=== PATIENT | male | born 1975 | race Caucasian/White ===

== ENCOUNTER 2016-10-07 13:17 | Inpatient (IN) | payer BC ==
[~2016-10-07] VITALS: Ht 170.2 cm; Wt 83.5 kg
--- NOTE | 2016-10-07 14:16 | Emergency Room Report ---
History of Present Illness General Chief Complaint: Skin Rash/Abscess Source: Patient Present Illness HPI 41-year-old male presents emergency department complaining of pain, swelling, erythema to the gluteal cleft x4 days. Patient states he has a past history of pilonidal cyst. Patient states that he was evaluated by Dr. mallory hilario this morning and was sent to the ER for admission as he will be receiving surgical removal of pilonidal cyst tomorrow morning. Patient denies nausea, vomiting, fevers, chills, discharge. Patient denies taking antibiotic medications at this time. Patient states he took Tylenol prior to arrival and his pain is now a 3/10 in severity however previously his pain was 10 out of 10 in severity. Denies CP, Palpitations, LOC, AMS, dizziness, Changes in Vision, Sensation, paresthesias, or a sudden severe headache. Allergies: Coded Allergies: No Known Allergies (Unverified , 10/07/16) Patient History Past Medical History: see triage record Past Surgical History: none Pertinent Family History: none Immunizations: UTD Reviewed Nursing Documentation: PMH: Agreed, PSxH: Agreed Nursing Documentation-PMH Past Medical History: No History, Except For Review of Systems All Other Systems: negative except mentioned in HPI Physical Exam Vital Signs Date Time Temp Pulse Resp B/P Pulse Ox O2 Delivery O2 Flow Rate FiO2 10/07/16 13:29 98.1 61 16 101/63 98 Room Air Sp02 EP Interpretation: reviewed, normal General Appearance: no apparent distress, alert, GCS 15, non-toxic Head: normocephalic, atraumatic Eyes: bilateral eye PERRL, bilateral eye normal inspection ENT: hearing grossly normal, normal pharynx, no angioedema, normal voice Neck: full range of motion, supple/symm/no masses Respiratory: lungs clear, normal breath sounds, speaking full sentences Cardiovascular #1: regular rate, rhythm, no edema Cardiovascular #2: 0 carotid (R), 0 carotid (L), 0 radial (R), 0 radial (L), 0 femoral (R), 0 femoral (L), 0 dorsalis pedis (R), 0 dorsalis pedis (L) Rectal: deferred, tenderness - mild erythema and TTp to the gluteal cleft, no fluctuance palpated. mild induration. Genitourinary: normal inspection, no CVA tenderness Musculoskeletal: back normal, gait/station normal, normal range of motion, non- tender, no calf tenderness Neurologic: alert, oriented x3, responsive, motor strength/tone normal, sensory intact, speech normal Psychiatric: judgement/insight normal, memory normal, mood/affect normal Skin: normal color, no rash, warm/dry, well hydrated, other - mild erythema and TTp to the gluteal cleft, no fluctuance palpated. mild induration. Lymphatic: no adenopathy Medical Decision Making PA Attestation Dr. Elias is my supervising Physician whom patient management has been discussed with. Diagnostic Impression: Primary Impression: Pilonidal cyst ER Course Pt. presents to the ED c/o pain, swelling, and erythema of the gluteal cleft x 4 days. - pt sent to ED by for Surgical removal scheduled for tomorrow am. Ddx considered but are not limited to cellulitis, hydradenitis Suppurativa, Pilonidal Cyst, Vital signs: are WNL, pt. is afebrile H&PE are most consistent with Pilonidal Cyst requiring direct admission for surgical or IV abx management. ORDERS: -Gen. preop lab work: CBC, CMP, PT/PTT,-- which were unremarkable -Type and Screen: ordered for Pro-op - EK BPM NSR, no acute ST changes -interpreted by Dr. Elias -CXR: No consolidation, effusion, pneumothorax or acute cardiopulmonary findings per official radiology report by Dr. Sadler -Blood Cultures x 2 : Pending ED INTERVENTIONS: -1.5Grams Unasyn IV -5mg [place] PO -30mg Toradol IV DISPOSITION: at this time pt. will be admitted to Dr. Veloz for Pilonidal Cyst Removal. Dr. Veloz agreed to admit the pt. and to continue pt. care management. Labs Test 10/07/16 14:30 White Blood Count 8.1 K/UL (4.8-10.8) Red Blood Count 4.61 M/UL (4.70-6.10) Hemoglobin 15.0 G/DL (14.2-18.0) Hematocrit 45.4 % (42.0-52.0) Mean Corpuscular Volume 98 FL (80-99) Mean Corpuscular Hemoglobin 32.5 PG (27.0-31.0) Mean Corpuscular Hemoglobin Concent 33.1 G/DL (32.0-36.0) Red Cell Distribution Width 11.1 % (11.6-14.8) Platelet Count 206 K/UL (150-450) Mean Platelet Volume 6.6 FL (6.5-10.1) Neutrophils (%) (Auto) 63.7 % (45.0-75.0) Lymphocytes (%) (Auto) 22.7 % (20.0-45.0) Monocytes (%) (Auto) 6.1 % (1.0-10.0) Eosinophils (%) (Auto) 6.6 % (0.0-3.0) Basophils (%) (Auto) 0.9 % (0.0-2.0) Prothrombin Time 10.7 SEC (9.30-11.50) Prothromb Time International Ratio 1.1 (0.9-1.1) Activated Partial Thromboplast Time 27 SEC (23-33) Sodium Level 140 mEQ/L (135-145) Potassium Level 3.8 mEQ/L (3.4-4.9) Chloride Level 98 mEQ/L (98-107) Carbon Dioxide Level 29 mEQ/L (20-30) Anion Gap 13 (5-15) Blood Urea Nitrogen 9 mg/dL (7-23) Creatinine 0.8 mg/dL (0.7-1.2) Estimat Glomerular Filtration Rate > 60 mL/min (>60) Glucose Level 88 mg/dL (74-106) Calcium Level 8.9 mg/dL (8.6-10.2) Total Bilirubin 0.3 mg/dL (0.0-1.2) Aspartate Amino Transf (AST/SGOT) 19 U/L (5-40) Alanine Aminotransferase (ALT/SGPT) 14 U/L (3-41) Alkaline Phosphatase 64 U/L (40-129) Total Protein 6.5 g/dL (6.6-8.7) Albumin 4.0 g/dL (3.5-5.2) Globulin 2.5 g/dL Albumin/Globulin Ratio 1.6 (1.0-2.7) EKG Diagnostic Results EP Interpretation: -interpreted by Dr. Elias Rate: normal - 62 BPM Rhythm: NSR ST Segments: no acute changes ASA given to the pt in ED: No PA Scribe Text 62 BPM NSR, no acute ST changes -interpreted by Dr. Elias Chest X-Ray Diagnostic Results EP Interpretation: No - read by Radiologist Findings: no effusion, no pneumothorax, no acute cardiopulmonary disease Number of Views: 1 PA Scribe Text CXR was officially read by Radiologist. Last Vital Signs Date Time Temp Pulse Resp B/P Pulse Ox O2 Delivery O2 Flow Rate FiO2 10/07/16 13:29 98.1 61 16 101/63 98 Room Air Disposition: ADMITTED INPATIENT Condition: Serious Mahi Lira Oct 07, 2016 14:16
[2016-10-07] MEDS ORDERED: Unasyn 1.5gm Vial ONE (14:44)
[2016-10-07] MEDS ORDERED: Ampicillin/Sulbactam Sod 1.5 GM in NS 55 ML IVPB SCH (14:45)
[2016-10-07 14:55] LABS: BASOPHILS % (AUTO) 0.9 % (0.0-2.0); EOSINOPHILS % (AUTO) 6.6 % (0.0-3.0); LYMPHOCYTES % (AUTO) 22.7 % (20.0-45.0); MEAN CORPUSCULAR HEMOGLOBIN 32.5 PG (27.0-31.0); MEAN CORPUSCULAR HGB CONC 33.1 G/DL (32.0-36.0); MEAN CORPUSCULAR VOLUME 98 FL (80-99); MEAN PLATELET VOLUME 6.6 FL (6.5-10.1); MONOCYTES % (AUTO) 6.1 % (1.0-10.0); NEUTROPHILS % (AUTO) 63.7 % (45.0-75.0); PLATELET COUNT 206 K/UL (150-450); RED BLOOD COUNT 4.61 M/UL (4.70-6.10); RED CELL DISTRIBUTION WIDTH 11.1 % (11.6-14.8); WHITE BLOOD COUNT 8.1 K/UL (4.8-10.8)
[2016-10-07 15:10] LABS: ALANINE AMINOTRANSFERASE 14 U/L (3-41); ALBUMIN/GLOBULIN RATIO 1.6 (1.0-2.7); ANION GAP 13 (5-15); ASPARTATE AMINO TRANSFERASE 19 U/L (5-40); CALCIUM 8.9 mg/dL (8.6-10.2); CARBON DIOXIDE 29 mEQ/L (20-30); CHLORIDE 98 mEQ/L (98-107); CREATININE 0.8 mg/dL (0.7-1.2); GLOMERULAR FILTRATION RATE > 60 mL/min (>60); HEMOLYSIS 10; POTASSIUM 3.8 mEQ/L (3.4-4.9); SODIUM 140 mEQ/L (135-145); TOTAL PROTEIN 6.5 g/dL (6.6-8.7)
[2016-10-07 15:14] LABS: INR 1.1 (0.9-1.1); PROTHROMBIN TIME 10.7 SEC (9.30-11.50)
[2016-10-07 15:22] VITALS: BP 121/72
[2016-10-07] MEDS ORDERED: Norco 5mg/325mg tab ORAL ONE (15:30)
[2016-10-07] MEDS ORDERED: Ketorolac 30mg Inj IV ONE (15:30)
[2016-10-07] MEDS ORDERED: DESCOVY 200-251 EACH PO (15:46)
[2016-10-07 16:00] VITALS: BP 116/49
--- NOTE | 2016-10-07 16:04 | Diagnostic Imaging Report ---
Indication: Cough Technique: Single portable AP view of the chest. Findings: Comparison: None. The bones and extra pulmonary soft tissues, cardiomediastinal silhouette, pulmonary vasculature and parenchyma, and pleural surfaces are unremarkable. IMPRESSION: Negative portable AP chest.
[2016-10-07] MEDS ORDERED: TIVICAY50 MG ORAL (16:16)
[2016-10-07] MEDS ORDERED: LORazepam Inj 2mg/ml 1ml IV PRN (17:30)
[2016-10-07] MEDS ORDERED: Morphine Sulfate 4mg/ml Inj IVP PRN (17:30)
[2016-10-07] MEDS ORDERED: Miralax 17gm pkt ORAL PRN (17:30)
[2016-10-07] MEDS ORDERED: Morphine Sulfate 2mg/ml Inj IVP PRN (17:30)
[2016-10-07] MEDS ORDERED: Milk of Magnesia 30ml Ud ORAL PRN (17:30)
[2016-10-07] MEDS ORDERED: Mylanta II UD 30ml ORAL PRN (17:30)
--- NOTE | 2016-10-07 17:35 | History and Physical ---
History of Present Illness General Date patient seen: Oct 07, 2016 Time patient seen: 17:29 Reason for Hospitalization: Skin Rash/Abscess Present Illness HPI 41 y/o HIV pos man who presents with a painful pilonidal cyst, has had it off and on for the past 2 years. yesterday the pain was uncontrolled, has taken abx for it previously but not on this episode, he saw a plastic surgeon who sent him to the ER to be evaluated and to get IV abx. He has not had surgery before, however recently had an epidural done under [place] without complications. His HIV is well controlled, last CD4 count 500+ and VL undetectable in Jul 2016. No fevers/chills. His exercise tolerance is excellent. He is able to exert greater than 4METS activity without any chest pain or dyspnea. No hx of CAD/CHF. Allergies: Coded Allergies: No Known Allergies (Unverified , 10/07/16) Medication History Scheduled Dolutegravir Sodium (Tivicay), 50 MG ORAL DAILY, (Reported) Emtricitabine/Tenofov Alafenam (Descovy 200-25 mg Tablet), 1 EACH PO DAILY, ( Reported) Patient History History Provided By: Patient Healthcare decision maker Resuscitation status Advanced Directive on File Past Medical/Surgical History Past Medical/Surgical History: (1) Pilonidal cyst Family History Family History: In first degree relatives is unremarkable Social History Social History: (1) No significant social history Review of Systems ROS Narrative CONSTITUTIONAL: No weight loss, fever, chills, weakness or fatigue. HEENT: Eyes: No visual loss, blurred vision, double vision or yellow sclerae. Ears, Nose, Throat: No hearing loss, sneezing, congestion, runny nose or sore throat. SKIN: No rash or itching. CARDIOVASCULAR: No chest pain, chest pressure or chest discomfort. No palpitations or edema. RESPIRATORY: No shortness of breath, cough or sputum. GASTROINTESTINAL: No anorexia, nausea, vomiting or diarrhea. No abdominal pain or blood. NEUROLOGICAL: No headache, dizziness, syncope, paralysis, ataxia, numbness or tingling in the extremities. No change in bowel or bladder control. MUSCULOSKELETAL: No muscle, +lower back and sacral pain, no joint pain or stiffness. HEMATOLOGIC: No anemia, bleeding or bruising. LYMPHATICS: No enlarged nodes. No history of splenectomy. PSYCHIATRIC: No history of depression or anxiety. ENDOCRINOLOGIC: No reports of sweating, cold or heat intolerance. No polyuria or polydipsia. ALLERGIES: No history of asthma, hives, eczema or rhinitis. Physical Exam Physical Exam Narrative General: alert, cooperative, no distress, appears stated age Head: normocephalic, without obvious abnormality, atraumatic Eyes: conjunctivae/corneas clear. PERRL, EOM's intact Throat: lips, mucosa, and tongue normal. MMM Neck: supple, symmetrical, trachea midline, and no JVD Lungs: clear to auscultation bilaterally Heart: regular rate and rhythm, S1, S2 normal, no murmur, click, rub or gallop Abdomen: soft, non-tender, non-distended, bowel sounds normal; no masses or organomegaly Extremities: area of induration/erythema/rubor/tenderness just above gluteal crevice Pulses: 2+ and symmetric Skin: skin color, texture, turgor normal; no rashes or lesions Neurologic: grossly normal, no focal deficits Last 24 Hour Vital Signs Date Time Temp Pulse Resp B/P Pulse Ox O2 Delivery O2 Flow Rate FiO2 10/07/16 16:31 66 14 121/72 97 Room Air 10/07/16 16:04 98.1 10/07/16 16:04 98.1 10/07/16 16:00 98.1 65 20 116/49 97 Room Air 10/07/16 15:22 97.9 66 14 121/72 97 Room Air 10/07/16 13:29 98.1 61 16 101/63 98 Room Air Laboratory Tests Test 10/07/16 14:30 White Blood Count 8.1 K/UL (4.8-10.8) Red Blood Count 4.61 M/UL (4.70-6.10) L Hemoglobin 15.0 G/DL (14.2-18.0) Hematocrit 45.4 % (42.0-52.0) Mean Corpuscular Volume 98 FL (80-99) Mean Corpuscular Hemoglobin 32.5 PG (27.0-31.0) H Mean Corpuscular Hemoglobin Concent 33.1 G/DL (32.0-36.0) Red Cell Distribution Width 11.1 % (11.6-14.8) L Platelet Count 206 K/UL (150-450) Mean Platelet Volume 6.6 FL (6.5-10.1) Neutrophils (%) (Auto) 63.7 % (45.0-75.0) Lymphocytes (%) (Auto) 22.7 % (20.0-45.0) Monocytes (%) (Auto) 6.1 % (1.0-10.0) Eosinophils (%) (Auto) 6.6 % (0.0-3.0) H Basophils (%) (Auto) 0.9 % (0.0-2.0) Prothrombin Time 10.7 SEC (9.30-11.50) Prothromb Time International Ratio 1.1 (0.9-1.1) Activated Partial Thromboplast Time 27 SEC (23-33) Sodium Level 140 mEQ/L (135-145) Potassium Level 3.8 mEQ/L (3.4-4.9) Chloride Level 98 mEQ/L (98-107) Carbon Dioxide Level 29 mEQ/L (20-30) Anion Gap 13 (5-15) Blood Urea Nitrogen 9 mg/dL (7-23) Creatinine 0.8 mg/dL (0.7-1.2) Estimat Glomerular Filtration Rate > 60 mL/min (>60) Glucose Level 88 mg/dL (74-106) Calcium Level 8.9 mg/dL (8.6-10.2) Total Bilirubin 0.3 mg/dL (0.0-1.2) Aspartate Amino Transf (AST/SGOT) 19 U/L (5-40) Alanine Aminotransferase (ALT/SGPT) 14 U/L (3-41) Alkaline Phosphatase 64 U/L (40-129) Total Protein 6.5 g/dL (6.6-8.7) L Albumin 4.0 g/dL (3.5-5.2) Globulin 2.5 g/dL Albumin/Globulin Ratio 1.6 (1.0-2.7) Height (Feet): 5 Height (Inches): 7.00 Weight (Pounds): 184 Medications Current Medications Medications (Trade) Dose Ordered Sig/Jolie Route PRN Reason Start Time Stop Time Status Last Admin Dose Admin Ampicillin Sodium/ Sulbactam Sodium/ Sodium Chloride (Unasyn/Sodium Chloride) 55 ml @ 110 mls/hr Q24HRS IVPB 3/28/17 14:45 10/14/16 14:44 10/07/16 14:56 Assessment/Plan Problem List: (1) Pilonidal cyst with abscess Assessment & Plan: Admit to inpatient Check blood cultures Start IV abx Wound care Pain control Plastic surgery consult to eval for I+D If patient is required to have surgery, based on the patient's medical history, and other available ancillary data, the patient is a LOW risk for an INTERMEDIATE risk procedure. Per the most recent ACC/AHA guidelines, the patient does not need any further cardiopulmonary testing prior to the procedure and there do not appear to be any clear medical contraindications to proceeding with the proposed procedure. ICD Codes: L05.01 - Pilonidal cyst with abscess SNOMED: [id number] HARVEY ESPINOSA Oct 07, 2016 17:35
[2016-10-07 19:00] VITALS: BP 107/52
[2016-10-07] MEDS: D5NS 1,000 ML IV SCH (19:01)
[2016-10-07] MEDS: Docusate 100mg tablet ORAL SCH (20:37)
[2016-10-07] MEDS: ceFAZolin sod 1 GM in D5W 55 ML IVPB SCH (21:20)
[2016-10-07] MEDS ORDERED: Dolutegravir Sodium 50mg tab ORAL ONE (22:00)
[2016-10-07] MEDS: DESCOVY ORAL SCH (22:07)
[2016-10-08] VITALS (16 sets, daily range): BP systolic 92–137; BP diastolic 38–85
[2016-10-08] MEDS: ceFAZolin sod 1 GM in D5W 55 ML IVPB SCH (05:44)
[2016-10-08] MEDS: D5NS 1,000 ML IV SCH ×2 (05:44→18:48)
[2016-10-08 07:15] LABS: ANION GAP 11 (5-15); CALCIUM 8.5 mg/dL (8.6-10.2); CARBON DIOXIDE 27 mEQ/L (20-30); CHLORIDE 105 mEQ/L (98-107); CREATININE 0.8 mg/dL (0.7-1.2); GLOMERULAR FILTRATION RATE > 60 mL/min (>60); HEMOLYSIS 5; POTASSIUM 3.9 mEQ/L (3.4-4.9); SODIUM 143 mEQ/L (135-145)
[2016-10-08] MEDS: Docusate 100mg tablet ORAL SCH ×2 (08:21→22:21)
[2016-10-08] MEDS ORDERED: Dolutegravir Sodium 50mg tab ORAL SCH (09:00)
[2016-10-08] MEDS ORDERED: Bacitracin 50000 Units Vial ONE (09:51)
[2016-10-08] MEDS ORDERED: Lidocaine 1% 10mg/ml/Epi 0.005mg/ml 30ml vial INJ ONE (09:51)
[2016-10-08] MEDS ORDERED: EPINEPHrine 1mg/1ml Amp ONE (09:51)
[2016-10-08] MEDS ORDERED: Propofol 10mg/ml 20ml IV ONE (09:56)
[2016-10-08] MEDS ORDERED: Zemuron 50mg/5ml Inj IV ONE (10:00)
[2016-10-08] MEDS ORDERED: Ketorolac 30mg Inj ONE (10:00)
[2016-10-08] MEDS ORDERED: LR 1000ml ONE (10:00)
[2016-10-08] MEDS ORDERED: Sterile Water Irrig 1000ml IRRIG ONE (10:00)
[2016-10-08] MEDS ORDERED: NS Irrig 1000ml ONE (10:00)
[2016-10-08] MEDS ORDERED: Neostigmine 1mg/ml 10ml Inj ONE (10:00)
[2016-10-08] MEDS ORDERED: Succinylcholine 20mg/ml 10ml vial ONE (10:00)
[2016-10-08] MEDS ORDERED: Morphine Sulfate 10mg/ml Inj ONE (10:00)
[2016-10-08] MEDS ORDERED: Glycopyrrolate 0.2mg/ml 1ml Vial ONE (10:00)
[2016-10-08] MEDS ORDERED: Midazolam 2mg/2ml Inj ONE (10:00)
--- NOTE | 2016-10-08 10:00 | Pre-Procedure Note/Attestation ---
Pre-Procedure Note/Attestation Complete Prior to Procedure Planned Procedure: not applicable Procedure Narrative: Excision of pilonidal cyst with flap closure Attestation I attest that I discussed the nature of the procedure; its benefits; risks and complications; and alternatives (and the risks and benefits of such alternatives ), prior to the procedure, with the patient (or the patient's legal bilingual sales representative). I attest that, if there was a reasonable possibility of needing a blood transfusion, the patient (or the patient's legal bilingual sales representative) was given the [facility] standardized written summary, pursuant to the Micah Johnnie Blood Safety Act ([place] Health and Safety Code # 1645, as amended). I attest that I re-evaluated the patient just prior to the surgery and that there has been no change in the patient's H&P, except as documented below: PURNIMA MASTERS Oct 08, 2016 10:00
--- NOTE | 2016-10-08 10:01 | Operative Note - PDOC ---
Operative Note Operative Note Pre-op Diagnosis: Pilonidal disease Procedure: Excision of pilonidal disease with flap closure Post-op Diagnosis: same as pre-op Surgeon: Sukhdev Addiction Nurse: Mena Anesthesia: general Specimen: yes Complications: none Condition: stable Estimated Blood Loss: minimal Drains: PURNIMA BELL Oct 08, 2016 10:01
[2016-10-08] MEDS ORDERED: Rate Change PCA 1 Each MISC PRN (10:15)
[2016-10-08] MEDS ORDERED: Zolpidem 5mg tab ORAL PRN (10:15)
[2016-10-08] MEDS ORDERED: Lacri-Lube Opth Oint 3.5gm ONE (10:21)
[2016-10-08] MEDS ORDERED: LR 1000ml 1,000 ML IVLG SCH (11:02)
--- NOTE | 2016-10-08 11:02 | Anethesia Preoperative Eval ---
Anesthesia Pre-op PMH/ROS General Date of Evaluation: Oct 08, 2016 Time of Evaluation: 10:02 Anesthesiologist: Lee Ann ASA Score: ASA 2 Mallampati Score Class I : Soft palate, uvula, fauces, pillars visible Class II: Soft palate, uvula, fauces visible Class III: Soft palate, base of uvula visible Class IV: Only hard plate visible Mallampati Classification: Class II Surgeon: Sukhdev Diagnosis: Infected pilonidal cyst Surgical Procedure: Excision of pilonidal cyst Anesthesia History: none Family History: no anesthesia problems Allergies: Coded Allergies: No Known Allergies (Unverified , 10/07/16) Past Medical History Cardiovascular: Denies: CAD, HTN, [place], arrhythmia, other, valve dz Pulmonary: Denies: COPD, [place], asthma, other Gastrointestinal/Genitourinary: Reports: GERD, Denies: CRI, ESRD, other Neurologic/Psychiatric: Denies: CVA, TIA, dementia, depression/anxiety, other Endocrine: Denies: DM, hypothyroidism, other, steroids HEENT: Denies: [place] (L), [place] (R), cataract (L), cataract (R), glaucoma, other Hematology/Immune: Reports: other - HIV + Stable on antivirals, Denies: DVT, anemia, bleeding disorder Musculoskeletal/Integumentary: Denies: DDD, DJD, OA, RA, edema, other PMH Narrative: as above PSxH Narrative: none Anesthesia Pre-op Phys. Exam Physician Exam Last Vital Signs Date Time Temp Pulse Resp B/P Pulse Ox O2 Delivery O2 Flow Rate FiO2 10/08/16 08:00 96.8 59 18 103/62 98 Room Air Constitutional: NAD Neurologic: CN 2-12 intact Cardiovascular: RRR, no M/R/G Respiratory: CTA Gastrointestinal: S/NT/ND Airway Exam Mallampati Score: Class II MO: full Neck: flexible ROM: full Teeth: intact Dentures: no lower, no upper Anesthesia Pre-op A/P Labs Hematology Test 10/07/16 14:30 White Blood Count 8.1 K/UL (4.8-10.8) Red Blood Count 4.61 M/UL (4.70-6.10) L Hemoglobin 15.0 G/DL (14.2-18.0) Hematocrit 45.4 % (42.0-52.0) Mean Corpuscular Volume 98 FL (80-99) Mean Corpuscular Hemoglobin 32.5 PG (27.0-31.0) H Mean Corpuscular Hemoglobin Concent 33.1 G/DL (32.0-36.0) Red Cell Distribution Width 11.1 % (11.6-14.8) L Platelet Count 206 K/UL (150-450) Mean Platelet Volume 6.6 FL (6.5-10.1) Neutrophils (%) (Auto) 63.7 % (45.0-75.0) Lymphocytes (%) (Auto) 22.7 % (20.0-45.0) Monocytes (%) (Auto) 6.1 % (1.0-10.0) Eosinophils (%) (Auto) 6.6 % (0.0-3.0) H Basophils (%) (Auto) 0.9 % (0.0-2.0) Coagulation Test 10/07/16 14:30 Prothrombin Time 10.7 SEC (9.30-11.50) Prothromb Time International Ratio 1.1 (0.9-1.1) Activated Partial Thromboplast Time 27 SEC (23-33) Chemistry Test 10/07/16 14:30 10/08/16 06:10 Sodium Level 140 mEQ/L (135-145) 143 mEQ/L (135-145) Potassium Level 3.8 mEQ/L (3.4-4.9) 3.9 mEQ/L (3.4-4.9) Chloride Level 98 mEQ/L (98-107) 105 mEQ/L (98-107) Carbon Dioxide Level 29 mEQ/L (20-30) 27 mEQ/L (20-30) Anion Gap 13 (5-15) 11 (5-15) Blood Urea Nitrogen 9 mg/dL (7-23) 10 mg/dL (7-23) Creatinine 0.8 mg/dL (0.7-1.2) 0.8 mg/dL (0.7-1.2) Estimat Glomerular Filtration Rate > 60 mL/min (>60) > 60 mL/min (>60) Glucose Level 88 mg/dL (74-106) 106 mg/dL (74-106) Calcium Level 8.9 mg/dL (8.6-10.2) 8.5 mg/dL (8.6-10.2) L Total Bilirubin 0.3 mg/dL (0.0-1.2) Aspartate Amino Transf (AST/SGOT) 19 U/L (5-40) Alanine Aminotransferase (ALT/SGPT) 14 U/L (3-41) Alkaline Phosphatase 64 U/L (40-129) Total Protein 6.5 g/dL (6.6-8.7) L Albumin 4.0 g/dL (3.5-5.2) Globulin 2.5 g/dL Albumin/Globulin Ratio 1.6 (1.0-2.7) Risk Assessment & Plan Assessment: ASA 2 Plan: GA with ETT prone position Status Change Before Surgery: No Pre-Antibiotics Drug: Ancef 2 gr. Given Within 1 Hr of Incision: Yes Time Given: 10:22 AUGIE MARIE M.D. Oct 08, 2016 11:02
[2016-10-08] MEDS ORDERED: Metoclopramide 10mg/2ml Inj IVP PRN (11:15)
[2016-10-08] MEDS ORDERED: Hydromorphone 0.5mg/0.5ml inj IVP PRN (11:15)
[2016-10-08] MEDS ORDERED: DiphenhydrAMINE 50mg/ml Inj IVP PRN (11:15)
[2016-10-08] MEDS ORDERED: Ketorolac 30mg Inj IV PRN (11:15)
[2016-10-08] MEDS ORDERED: Meperidine 25mg/ml Inj IV PRN (11:15)
[2016-10-08] MEDS: PCA HYDROmorphone 1mg/ml 30 ML IV PRN (13:10)
--- NOTE | 2016-10-08 13:32 | Immediate Post-Op Evaluation ---
Immediate Post-Op Evalulation Immediate Post-Op Evalulation Procedure: Excision of pilonidal cyst Date of Evaluation: Oct 08, 2016 Time of Evaluation: 11:50 IV Fluids: 800 Blood Products: none Estimated Blood Loss: <50 Urinary Output: none Blood Pressure Systolic: 136 Blood Pressure Diastolic: 58 Pulse Rate: 74 Respiratory Rate: 22 O2 Sat by Pulse Oximetry: 99 Temperature (Fahrenheit): 97.6 Pain Score (1-10): 2 Nausea: No Vomiting: No Complications none Patient Status: reacts, patent, extubated, none Hydration Status: adequate AUGIE MARIE M.D. Oct 08, 2016 13:32
[2016-10-08] MEDS ORDERED: TIVICAY 50MG TAB ORAL SCH (14:00)
--- NOTE | 2016-10-08 14:28 | General Progress Note ---
Assessment/Plan Problem List: (1) Pilonidal cyst with abscess Assessment & Plan: s/p I+D pilonidal abscess POD#0 f/u blood cultures Cont IV abx Wound care Pain control Plastic surgery input and wound care appreciated ICD Codes: L05.01 - Pilonidal cyst with abscess SNOMED: [id number] Subjective Date patient seen: Oct 08, 2016 Time patient seen: 14:26 ROS Limited/Unobtainable: No Allergies: Coded Allergies: No Known Allergies (Unverified , 10/07/16) Subjective s/p I+D of pilonidal abscess Objective Last 24 Hour Vital Signs Date Time Temp Pulse Resp B/P Pulse Ox O2 Delivery O2 Flow Rate FiO2 10/08/16 14:02 97.0 73 20 128/71 97 Room Air 10/08/16 13:32 74 22 99 10/08/16 13:19 98.0 10/08/16 13:16 98.0 10/08/16 13:16 98.0 10/08/16 13:10 98.0 62 20 101/49 98 Nasal Cannula 3.0 10/08/16 13:10 20 10/08/16 13:00 63 20 103/50 98 Nasal Cannula 3.0 10/08/16 12:45 64 20 102/49 98 Nasal Cannula 3.0 10/08/16 12:30 59 20 111/51 98 Nasal Cannula 3.0 10/08/16 12:19 64 20 119/69 98 Nasal Cannula 3.0 10/08/16 12:15 68 20 124/74 98 Nasal Cannula 3.0 10/08/16 12:00 77 20 137/82 98 Nasal Cannula 3.0 10/08/16 11:56 78 20 136/79 98 Nasal Cannula 3.0 10/08/16 11:51 84 20 132/76 98 Simple Mask 10.0 10/08/16 11:46 98.0 92 20 131/85 98 Simple Mask 10.0 10/08/16 08:00 96.8 59 18 103/62 98 Room Air 10/08/16 04:00 97.0 56 18 104/59 95 Room Air 10/08/16 00:00 97.3 56 18 104/62 96 Room Air 10/07/16 19:00 97.9 56 20 107/52 96 Room Air 10/07/16 16:31 66 14 121/72 97 Room Air 10/07/16 16:04 98.1 10/07/16 16:04 98.1 10/07/16 16:00 98.1 65 20 116/49 97 Room Air 10/07/16 15:22 97.9 66 14 121/72 97 Room Air Intake and Output 10/07/16 10/08/16 19:00 07:00 Intake Total 55 ml 1692.5 ml Balance 55 ml 1692.5 ml Intake Oral 740 ml IV Total 55 ml 952.5 ml # Voids 1 8 Laboratory Tests 10/07/16 14:30: White Blood Count 8.1, Red Blood Count 4.61L, Hemoglobin 15.0, Hematocrit 45.4, Mean Corpuscular Volume 98, Mean Corpuscular Hemoglobin 32.5H, Mean Corpuscular Hemoglobin Concent 33.1, Red Cell Distribution Width 11.1L, Platelet Count 206, Mean Platelet Volume 6.6, Neutrophils (%) (Auto) 63.7, Lymphocytes (%) (Auto) 22.7, Monocytes (%) (Auto) 6.1, Eosinophils (%) (Auto) 6.6H, Basophils (%) (Auto ) 0.9, Prothrombin Time 10.7, Prothromb Time International Ratio 1.1, Activated Partial Thromboplast Time 27, Sodium Level 140, Potassium Level 3.8, Chloride Level 98, Carbon Dioxide Level 29, Anion Gap 13, Blood Urea Nitrogen 9, Creatinine 0.8, Estimat Glomerular Filtration Rate > 60, Glucose Level 88, Calcium Level 8.9, Total Bilirubin 0.3, Aspartate Amino Transf (AST/SGOT) 19, Alanine Aminotransferase (ALT/SGPT) 14, Alkaline Phosphatase 64, Total Protein 6.5L, Albumin 4.0, Globulin 2.5, Albumin/Globulin Ratio 1.6 10/08/16 06:10: Sodium Level 143, Potassium Level 3.9, Chloride Level 105, Carbon Dioxide Level 27, Anion Gap 11, Blood Urea Nitrogen 10, Creatinine 0.8, Estimat Glomerular Filtration Rate > 60, Glucose Level 106, Calcium Level 8.5L Height (Feet): 5 Height (Inches): 7.00 Weight (Pounds): 184 Objective General: alert, cooperative, no distress, appears stated age Head: normocephalic, without obvious abnormality, atraumatic Eyes: conjunctivae/corneas clear. PERRL, EOM's intact Throat: lips, mucosa, and tongue normal. MMM Neck: supple, symmetrical, trachea midline, and no JVD Lungs: clear to auscultation bilaterally Heart: regular rate and rhythm, S1, S2 normal, no murmur, click, rub or gallop Abdomen: soft, non-tender, non-distended, bowel sounds normal; no masses or organomegaly Extremities: incision c/d/i in area of pilonidal region Pulses: 2+ and symmetric Skin: skin color, texture, turgor normal; no rashes or lesions Neurologic: grossly normal, no focal deficits HARVEY ESPINOSA Oct 08, 2016 14:28
[2016-10-08] MEDS: PCA shift volume MISC SCH ×2 (15:00→23:00)
--- NOTE | 2016-10-08 16:26 | Cardiology Report ---
APPROVED REPORT EKG Measurement Heart [id number] IL [id number] Normal sinus rhythm Normal ECG
--- NOTE | 2016-10-08 18:29 | Consultation ---
DATE OF CONSULTATION: 10/08/2016 ADMITTING PHYSICIAN: Harriett Veloz M.D. HISTORY OF PRESENT ILLNESS: This is a 41-year-old HIV-positive man who presented with a painful pilonidal cyst on the buttock region. He had the symptoms for approximately two years on and off, has been on antibiotics intermittently and presented secondary to pain in the area. PAST MEDICAL HISTORY: Significant for HIV. PAST SURGICAL HISTORY: Surgery includes previous incision and drainage of the pilonidal cyst. MEDICATIONS: Antiretrovirals. ALLERGIES: None. PHYSICAL EXAMINATION: GENERAL: The patient is alert and oriented x3. HEART: Regular rate and rhythm. ABDOMEN: Soft, nontender, and nondistended. EXTREMITIES: Examination of lower trunk region reveals an area of induration and tenderness in the buttock clefts, just in the lower back. ASSESSMENT AND PLAN: This is a 41-year-old human immunodeficiency virus positive male admitted for pilonidal abscess. The patient will be taken to the operating room for excisional debridement and flap closure. He understands the risks and benefits of the surgery and agrees to proceed. Bud Santizo M.D. DR: JONO JOB#: [id number] CC:
[2016-10-08] MEDS: ceFAZolin sod 1 GM in NS 55 ML IV SCH (18:41)
--- NOTE | 2016-10-08 19:49 | Operative Note - Dictated ---
DATE OF OPERATION: 10/08/2016 PREOPERATIVE DIAGNOSIS: Lower back pilonidal cyst/infection. POSTOPERATIVE DIAGNOSIS: Lower back pilonidal cyst/infection. PROCEDURES: 1. Excisional debridement of lower back/pilonidal cyst. 2. Rhomboid/Limberg flap elevation for closure of sacral defect. 3. Right lateral fasciocutaneous gluteal flap elevation for closure of lower back wound. SURGEON: Bud Santizo M.D. VERTICAL PUNCH OPERATOR: Evon San M.D. ANESTHESIA: General. POSITION: Prone. COMPLICATIONS: None. DRAINS: A size 7 IRENE. ESTIMATED BLOOD LOSS: Minimal. DISPOSITION: Stable to the recovery room. INDICATIONS FOR SURGERY: This is a 41-year-old HIV positive male who had been admitted to the emergency room for lower back pilonidal cyst infection. He had been complaining of some pain and drainage in the area, was admitted for IV antibiotics and I saw the patient and felt that he was an appropriate candidate for debridement and excision of this area with flap reconstruction. He understood the risks and benefits of surgery and agreed to proceed. DETAILS OF THE OPERATION: The patient was brought to the operating room and laid supine on the operating table. After induction of anesthesia, he was placed in a prone position. The area of inflammation in this region is the sacral region, measured a total of 4 x 4 centimeter. This was in an irregular pattern and was felt to be within the areas of the disease. I then proceeded to design a rhomboid pattern around the actual diseased area leading to a rhomboid that had 4 centimeter limbs on each side. With this rhomboid pattern design around the diseased area, a corresponding rhomboid flap that was superiorly based on the right was then designed with a corresponding eli made to allow for transposition of the flap into the defect. With the markings designed, I then began the case by using a #10 blade to excise the diseased area. Dissection was carried down all the way to the level of the presacral fascia. We encountered a minimal amount of turbid fluid, which was evacuated and upon debridement all the way down to level of the fascia, we noted there was no evidence of infection or disease left behind. At this point, the remaining tissue was within the rhomboid markings. We then excised the additional tissue to leave a full rhomboid defect. The wound was then copiously irrigated and hemostasis was achieved. We then made a corresponding incision on the rhomboid flap that was again superiorly and laterally based. The flap was fully mobilized by elevating it off the fascia with the axial vessels coming off of the branches of the superior gluteal artery. With the flap fully mobilized tailor tacked and transposed into the defect. We noted that the donor site would require elevation of tissues on the left side slightly to allow for closure. When the rhomboid flap was also elevated, we also noted that the right side needed to have full mobilization of the tissues on the right to allow for full definitive closure. As such a fasciocutaneous flap was elevated on the right of the defect at the level of the fascia and branches of the superior gluteal artery and that side where the axial vessels that supplied this flap. The proximal and distal incisions were also made to allow for full mobilization of the flap into the defect with a rhomboid flap and the right lateral fasciocutaneous flaps were elevated, the defect was fully closed over a Abner-Bradley using a layered closure of 0 2-0 and 3-0 Vicryl sutures. The donor site was then closed in a layered fashion as well with similar sutures and the skin was then closed with an interrupted vertical mattress 2-0 Prolene sutures and Dermabond. Compressive dressings were applied. The patient tolerated the procedure well. There was no complications. Bud Santizo M.D. DR: JONO JOB#: [id number] CC: KRISTINA
[2016-10-08] MEDS: TIVICAY 50MG TAB ORAL SCH (22:21)
[2016-10-08] MEDS: DESCOVY ORAL SCH (22:21)
[2016-10-08] MEDS ORDERED: D5NS 1000ml IV ONE (22:22)
[2016-10-08] MEDS ORDERED: Tubing IV Secondary IV ONE (22:22)
[2016-10-08] MEDS: Heparin 5000 units/ml inj SUBQ SCH (22:25)
[2016-10-09] VITALS: BP 106/59
[2016-10-09] MEDS: ceFAZolin sod 1 GM in NS 55 ML IV SCH (00:15)
[2016-10-09 04:00] VITALS: BP 103/50
[2016-10-09] MEDS: PCA shift volume MISC SCH ×3 (07:27→23:21)
[2016-10-09] MEDS: D5NS 1,000 ML IV SCH ×2 (07:42→21:31)
[2016-10-09 08:00] VITALS: BP 110/67
--- NOTE | 2016-10-09 08:15 | General Progress Note ---
Progress Note Progress Note Pt seen and examined. POD # 1 and doing well. Dressings are CDI and drain with SS output. Dc planning for home tomorrow. PURNIMA Arellano MD Oct 09, 2016 08:15
[2016-10-09] MEDS: Docusate 100mg tablet ORAL SCH ×2 (08:16→21:32)
[2016-10-09] MEDS: Heparin 5000 units/ml inj SUBQ SCH ×2 (08:19→21:30)
--- NOTE | 2016-10-09 08:52 | 48 Hour Post Anesthesia Eval ---
Post Anesthesia Evaluation Procedure: Excision of pilonidal cyst Date of Evaluation: Oct 09, 2016 Time of Evaluation: 08:50 Blood Pressure Systolic: 103 0: 68 Pulse Rate: 74 Respiratory Rate: 20 Temperature (Fahrenheit): 97.6 O2 Sat by Pulse Oximetry: 98 Airway: patent Nausea: No Vomiting: No Pain Intensity: 3 Hydration Status: adequate Cardiopulmonary Status: stable Mental Status/LOC: patient returned to baseline Follow-up Care/Observations: n/a Post-Anesthesia Complications: none Follow-up care needed: N/A AUGIE MARIE M.D. Oct 09, 2016 08:52
[2016-10-09 12:00] VITALS: BP 134/53
--- NOTE | 2016-10-09 14:43 | General Progress Note ---
Assessment/Plan Problem List: (1) Pilonidal cyst with abscess Assessment & Plan: s/p I+D pilonidal abscess POD#1 f/u blood cultures Cont IV abx Wound care Pain control Plastic surgery input and wound care appreciated ICD Codes: L05.01 - Pilonidal cyst with abscess SNOMED: [id number] Subjective Date patient seen: Oct 09, 2016 Time patient seen: 14:42 ROS Limited/Unobtainable: No Allergies: Coded Allergies: No Known Allergies (Unverified , 10/07/16) Subjective s/p I+D of pilonidal abscess, painc ontrolled, no chest pain or dyspnea Objective Last 24 Hour Vital Signs Date Time Temp Pulse Resp B/P Pulse Ox O2 Delivery O2 Flow Rate FiO2 10/09/16 14:00 18 10/09/16 12:00 18 10/09/16 12:00 98.2 67 18 134/53 98 Room Air 10/09/16 08:52 74 20 98 10/09/16 08:00 97.9 58 18 110/67 97 Room Air 10/09/16 08:00 20 10/09/16 04:00 20 10/09/16 04:00 97.9 69 18 103/50 97 Room Air 10/09/16 00:00 20 10/09/16 00:00 97.9 68 18 106/59 95 Room Air 10/08/16 22:58 20 10/08/16 20:00 97.7 57 17 106/58 98 Room Air 10/08/16 18:58 19 10/08/16 16:00 96.8 57 17 92/38 95 Room Air 10/08/16 14:58 18 Intake and Output 10/08/16 10/09/16 19:00 07:00 Intake Total 1600 ml 1865 ml Output Total 480 ml 2880 ml Balance 1120 ml -1015 ml Intake Oral 0 ml 1040 ml IV Total 1600 ml 825 ml Output Urine Total 480 ml 2850 ml Drainage Total 30 ml # Voids 1 Height (Feet): 5 Height (Inches): 7.00 Weight (Pounds): 184 Objective General: alert, cooperative, no distress, appears stated age Head: normocephalic, without obvious abnormality, atraumatic Eyes: conjunctivae/corneas clear. PERRL, EOM's intact Throat: lips, mucosa, and tongue normal. MMM Neck: supple, symmetrical, trachea midline, and no JVD Lungs: clear to auscultation bilaterally Heart: regular rate and rhythm, S1, S2 normal, no murmur, click, rub or gallop Abdomen: soft, non-tender, non-distended, bowel sounds normal; no masses or organomegaly Extremities: incision c/d/i in area of pilonidal region Pulses: 2+ and symmetric Skin: skin color, texture, turgor normal; no rashes or lesions Neurologic: grossly normal, no focal deficits HARVEY ESPINOSA Oct 09, 2016 14:43
[2016-10-09] MEDS: PCA HYDROmorphone 1mg/ml 30 ML IV PRN (14:45)
[2016-10-09 16:24] VITALS: BP 111/57
[2016-10-09] MEDS ORDERED: D5NS 1000ml IV ONE ×2 (17:15→17:48)
[2016-10-09] MEDS ORDERED: Tubing IV Secondary IV ONE (17:48)
[2016-10-09 20:00] VITALS: BP 115/60
[2016-10-09] MEDS: TIVICAY 50MG TAB ORAL SCH (21:31)
[2016-10-09] MEDS: DESCOVY ORAL SCH (21:32)
[2016-10-10 00:30] VITALS: BP 111/65
[2016-10-10 04:00] VITALS: BP 109/58
[2016-10-10] MEDS: PCA shift volume MISC SCH (07:11)
[2016-10-10 08:00] VITALS: BP 124/78
[2016-10-10] MEDS: Docusate 100mg tablet ORAL SCH (08:15)
[2016-10-10] MEDS: Heparin 5000 units/ml inj SUBQ SCH (08:18)
--- NOTE | 2016-10-10 13:49 | Discharge Summary ---
Discharge Summary Hospital Course Date of Admission Oct 07, 2016 at 15:00 Date of Discharge Oct 10, 2016 Admitting Diagnosis Pilonidal abscess Reason for Hospitalization: as above HPI Dariusz Elizabeth is a 41 year old male who was admitted on Oct 07, 2016 at 15:00 for Pilonidal Cyst Consultations Plastic surgery Procedures See operative report Hospital Course 41 y/o HIV pos man with pilonidal abscess, admitted for IV abx, seen by surgery , who performed an I+D of the area without complications. Once pain controlled, he wass dced home on PO abx, he will f/u with Dr. Santizo as outpt in a week. Discharge Medications Continued Medications: Dolutegravir Sodium (Tivicay) 50 Mg Tablet 50 MG ORAL DAILY, TAB Emtricitabine/Tenofov Alafenam (Descovy 200-25 mg Tablet) 1 Each Tablet 1 EACH PO DAILY, TAB Discharge Condition Upon Discharge: stable Discharge Disposition Patient was discharged to Home (01) Discharge Diagnoses: (1) Pilonidal cyst with abscess HARVEY ESPINOSA Oct 10, 2016 13:49
== END 2016-10-10 10:50 | disposition home or self-care (01) | DRG 570 ==
LOC: EMR 14:50 → 4E 15:00 → EDBEDREQ 15:16 → 3E 10-08 12:33
DX: L05.01 Pilonidal cyst with abscess (principal); B20 Human immunodeficiency virus [HIV] disease
CPT/HCPCS: 36415; 71010; 80048; 80053; 85025; 85610; 85730; 86850; 86900; 86901; 87040; 93005; 94003; 94150; J2180; J2250; J2405; J2710